=== PATIENT | male | born 1985 | race Caucasian/White ===

== ENCOUNTER 2023-07-30 11:57 | Emergency (ER) | payer MEDICAID ==
[~2023-07-30] VITALS: Ht 190.5 cm; Wt 70.3 kg
[2023-07-30] MEDS ORDERED: BUPR1FIL3 SL (12:15)
[2023-07-30] MEDS ORDERED: BUPRENORPHINE HCL 8 MG TAB.SUBL SL ONE ×2 (12:21→12:30)
[2023-07-30 13:03] VITALS: BP 132/68; TEMP 98.2; O2SAT 100
== END 2023-07-30 13:03 | disposition home or self-care (01) ==
LOC: ER 11:57
DX: Z60.2 Problems related to living alone (principal); Z79.899 Other long term (current) drug therapy